=== PATIENT | female | born 1975 | race Two or more races ===

== ENCOUNTER 2016-11-08 01:39 | Emergency (ER) | payer SELFPAY ==
[~2016-11-08] VITALS: Ht 160 cm; Wt 59.0 kg
[2016-11-08] MEDS ORDERED: HYDROCODONE/APAP 5/325MG 1 EACH TABLET ONE (02:18)
[2016-11-08] MEDS ORDERED: ACETAMINOPHEN ES 500 MG TABLET ONE (02:18)
[2016-11-08] MEDS ORDERED: HYDROCODONE/APAP 5/325MG 1 EACH TABLET PO ONE (02:30)
[2016-11-08] MEDS ORDERED: ACETAMINOPHEN 325 MG TABLET PO ONE (02:30)
[2016-11-08 02:54] VITALS: BP 118/70
== END 2016-11-08 02:54 | disposition home or self-care (01) ==
LOC: ER 01:42
DX: J02.9 Acute pharyngitis, unspecified (principal); S46.911A Strain of unspecified muscle, fascia and tendon at shoulder and upper arm level, right arm, initial encounter; S16.1XXA Strain of muscle, fascia and tendon at neck level, initial encounter; J06.9 Acute upper respiratory infection, unspecified; X58.XXXA Exposure to other specified factors, initial encounter; Y93.9 Activity, unspecified; Y92.9 Unspecified place or not applicable; Y99.9 Unspecified external cause status
CPT/HCPCS: 99283; A4606; Z7610

== ENCOUNTER 2022-05-30 15:22 | Emergency (ER) | payer OTHER ==
[~2022-05-30] VITALS: Ht 160 cm; Wt 63.5 kg
--- NOTE | 2022-05-30 15:36 | NUR ---
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 VITALS ARE WITHIN NORMAL LIMITS.
[2022-05-30] MEDS ORDERED: BACI/NEOM/POLY B OINT PKT 1 UDPKT PACKET TP ONE (16:00)
[2022-05-30] MEDS ORDERED: LIDOCAINE HCL/PF 1% 30 ML VIAL TP ONE (16:00)
[2022-05-30] MEDS ORDERED: TDAP [DIPH/PERTUSSIS/TET] 0.5 ML VIAL IM ONE ×2 (16:00→17:03)
[2022-05-30] MEDS ORDERED: LIDOCAINE /MPF 1% VIAL 5 ML VIAL ONE (16:21)
[2022-05-30] MEDS ORDERED: BACI/NEOM/POLY B OINT PKT 1 UDPKT PACKET ONE (17:03)
[2022-05-30] MEDS ORDERED: CEPH500C2 PO (17:09)
--- NOTE | 2022-05-30 17:22 | NUR ---
Patient discharged to home in stable condition. Written and verbal after care instructions given. Patient verbalizes understanding of instruction.
[2022-05-30 17:45] VITALS: BP 118/70
== END 2022-05-30 17:48 | disposition home or self-care (01) ==
LOC: ER 15:29
DX: S01.21XA Laceration without foreign body of nose, initial encounter (principal); W11.XXXA Fall on and from ladder, initial encounter; Y93.89 Activity, other specified; Y92.89 Other specified places as the place of occurrence of the external cause; Y99.8 Other external cause status
CPT/HCPCS: 99284; 72125; 12011; 90471; 90715; 70450; J3490 ×2; A6403 ×2

== ENCOUNTER 2022-06-07 07:15 | Emergency (ER) | payer OTHER ==
[~2022-06-07] VITALS: Ht 160 cm; Wt 58.1 kg
[~2022-06-07 07:15] MED LIST: CEPH500C2 PO
[2022-06-07 07:20] VITALS: BP 135/88
--- NOTE | 2022-06-07 07:52 | NUR ---
Patient discharged to home in stable condition. Written and verbal after care instructions given. Patient verbalizes understanding of instruction.
== END 2022-06-07 07:52 | disposition home or self-care (01) ==
LOC: ER 07:16
DX: S01.21XD Laceration without foreign body of nose, subsequent encounter (principal); X58.XXXD Exposure to other specified factors, subsequent encounter